=== PATIENT | female | born 1990 | race Caucasian/White ===

== ENCOUNTER 2017-04-06 16:35 | Emergency (ER) | payer OTHER ==
[2017-04-06 19:02] VITALS: BP 135/75
--- NOTE | 2017-04-06 19:37 | UC ---
Eye Complaint HPI - HPI Summary HPI Summary: complaint of right eye redness and itchy that started 2 days ago woke up the first day with swelling in upper eyelid had a lot of purulent drainage using a warm pack without relief used visine with minimal relief for a few minutes extremely itchy and irritated sis eye pain and vision changes headache slight nasal drainage d/t allergies - History of Current Complaint Chief Complaint: UCEye Stated Complaint: RT EYE COMPLAINT Time Seen by Provider: 04/06/17 19:17 Hx Obtained From: Patient Hx Last Menstrual Period: CURRENT - Allergies/Home Medications Allergies/Adverse Reactions: Allergies Allergy/AdvReac Type Severity Reaction Status Date / Time Diazepam [From Valium] Allergy Severe Swelling Verified 04/06/17 19:02 Of Face,Lips,& Throat Lu Allergy Swelling Verified 04/06/17 19:02 Of Face,Lips,& Throat [place] Allergy Swelling Verified 04/06/17 19:02 Of Face,Lips,& Throat Red Dye Allergy Swelling Verified 04/06/17 19:02 Of Face,Lips,& Throat Home Medications: Home Medications Levonorgestrel (Iud) [Mirena IUD] 20 mcg IU ONCE 04/06/17 [History Confirmed 07/15] PMH/Surg Hx/FS Hx/Imm Hx Previously Healthy: Yes - Surgical History Surgical History: Yes Surgery Procedure, Year, and Place: Gallbladder Removed, Tonsilectomy - Family History Known Family History: Positive: Cardiac Disease - mother, Hypertension - mother , Diabetes - mother - Social History Occupation: Employed Full-time Lives: With Family Alcohol Use: Rare Substance Use Type: None Smoking Status (MU): Heavy Every Day Tobacco Smoker Type: Cigarettes Amount Used/How Often: 1/2 ppd Length of Time of Smoking/Using Tobacco: GREATER THAN 10 YRS. Have You Smoked in the Last Year: Yes Cessation Counseling: Patient Advised to Stop Review of Systems Constitutional: Negative Skin: Negative Eyes: Drainage, Eye Redness ENT: Nasal Discharge Respiratory: Negative Cardiovascular: Negative Gastrointestinal: Negative Genitourinary: Negative Motor: Negative Neurovascular: Negative Musculoskeletal: Negative Neurological: Negative Psychological: Negative All Other Systems Reviewed And Are Negative: Yes Physical Exam Triage Information Reviewed: Yes Appearance: No Pain Distress, Well-Nourished Vital Signs: Initial Vital Signs Temp 98.8 F 04/06/17 18:56 Pulse 95 04/06/17 18:56 Resp 16 06/09/17 18:56 BP 135/75 04/06/17 18:56 Pulse Ox 99 04/06/17 18:56 Vital Signs Reviewed: Yes Eyes: Positive: Conjunctiva Inflamed - right, Other: - right upper eyelid with stye ENT: Positive: Pharynx normal, TMs normal Neck: Positive: No Lymphadenopathy Respiratory: Positive: Lungs clear, Normal breath sounds, No respiratory distress, No accessory muscle use Cardiovascular: Positive: RRR, No Murmur, Pulses Normal Abdomen Description: Positive: Nontender, Soft Bowel Sounds: Positive: Present Musculoskeletal: Positive: No Edema Neurological: Positive: Alert Psychological Exam: Normal Skin Exam: Normal Eye Complaint Course/Dx - Differential Dx/Diagnosis Differential Diagnosis/HQI/PQRI: Conjunctivitis, Other - hordelum Provider Diagnoses: right conjunctivitis. chalazion right upper eyelid Discharge - Discharge Plan Condition: Stable Disposition: HOME Prescriptions: Tobramycin 0.3% OPHTH.ROSE* 1 drop RIGHT EYE Q4H #1 btl Patient Education Materials: Conjunctivitis (ED), Stye (ED) Referrals: HASEEB Wilkes [Primary Care Provider] - Additional Instructions: Please start antibiotic eyedrops as directed Increase fluids and rest Take acetaminophen or ibuprofen for fever or pain Please review your discharge instructions. If your symptoms do not improve please call your primary care provider or return to urgent care. Your blood pressure is pre-hypertensive reading. Please contact your primary care provider within 1 day -4 weeks for further evaluation
== END 2017-04-06 19:44 | disposition home or self-care (01) ==
LOC: UCCORT 16:35
DX: H10.9 Unspecified conjunctivitis (principal); H00.11 Chalazion right upper eyelid; F17.210 Nicotine dependence, cigarettes, uncomplicated
CPT/HCPCS: 99212; G0463

== ENCOUNTER 2018-11-21 16:52 | Emergency (ER) | payer OTHER | END 2018-11-21 17:57 | disposition left against medical advice (07) | LOC: UCCORT 16:52 | DX: K12.2 Cellulitis and abscess of mouth (principal); L02.419 Cutaneous abscess of limb, unspecified; Z53.21 Procedure and treatment not carried out due to patient leaving prior to being seen by health care provider ==

== ENCOUNTER 2019-01-21 14:50 | Emergency (ER) | payer OTHER ==
[2019-01-21 15:30] VITALS: BP 126/71
--- NOTE | 2019-01-21 16:34 | UC ---
Lower Extremity/Ankle HPI - HPI Summary HPI Summary: 28 yo female presents with a 2 day hx of bilat LE edema and numbness and tingling of her left wrist up to elbow Had CTS when and her left arm symptoms are identical Dx with HEP C 08/2019 and has not followed up with specialist yet some perioral tingling as well no CP or sob no f/c - History of Current Complaint Chief Complaint: UCGeneralIllness Stated Complaint: LEFT FOOT COMPLAINT Time Seen by Provider: 01/21/19 16:12 Hx Obtained From: Patient Hx Last Menstrual Period: 01/14/19 Onset/Duration: Gradual Onset, Lasting Weeks Severity Currently: None Pain Intensity: 0 Pain Scale Used: 0-10 Numeric Aggravating Factor(s): Nothing Alleviating Factor(s): Elevation, Nothing Able to Bear Weight: Yes - Allergies/Home Medications Allergies/Adverse Reactions: Allergies Allergy/AdvReac Type Severity Reaction Status Date / Time kumari Allergy Swelling Verified 01/21/19 15:22 Of Face,Lips,& Throat diazepam [From Valium] Allergy Swelling Verified 01/21/19 15:22 Of Face,Lips,& Throat pine nut Allergy Swelling Verified 01/21/19 15:22 Of Face,Lips,& Throat red dye Allergy Swelling Verified 01/21/19 15:22 Of Face,Lips,& Throat Home Medications: Home Medications Buprenorp/Nalox 8-2 MG FILM [Suboxone 8 mg-2 mg Sl Film] 1 each SL DAILY [History Confirmed 01/21/19] PMH/Surg Hx/FS Hx/Imm Hx Previously Healthy: Yes Other History Of: Hepatitis C - Surgical History Surgical History: Yes Surgery Procedure, Year, and Place: Gallbladder Removed, Tonsilectomy - Family History Known Family History: Positive: Cardiac Disease - mother, Hypertension - mother , Diabetes - mother - Social History Alcohol Use: None Substance Use Type: Other Substance Use Comment - Amount & Last Used: sunday Smoking Status (MU): Heavy Every Day Tobacco Smoker Type: Cigarettes Amount Used/How Often: 1/2 ppd Length of Time of Smoking/Using Tobacco: GREATER THAN 10 YRS. Have You Smoked in the Last Year: Yes Review of Systems All Other Systems Reviewed And Are Negative: Yes Constitutional: Positive: Negative Skin: Positive: Negative Eyes: Positive: Negative ENT: Positive: Negative Respiratory: Positive: Negative Cardiovascular: Positive: Negative Gastrointestinal: Positive: Negative Genitourinary: Positive: Negative Motor: Positive: Negative Neurovascular: Positive: Negative Musculoskeletal: Positive: Edema Neurological: Positive: Paresthesia, Numbness Psychological: Positive: Negative Physical Exam Triage Information Reviewed: Yes Appearance: Well-Appearing, No Pain Distress, Well-Nourished Vital Signs: Initial Vital Signs Temp 98.6 F 01/21/19 15:23 Pulse 93 01/21/19 15:23 Resp 16 01/21/19 15:23 BP 126/71 01/21/19 15:23 Pulse Ox 100 01/21/19 15:23 Vital Signs Reviewed: Yes Eyes: Positive: Conjunctiva Clear ENT: Positive: Hearing grossly normal, Pharynx normal, Uvula midline. Negative : Nasal congestion, Nasal drainage, Trismus, Muffled voice, Hoarse voice Dental Exam: Other - abysmal dentition Neck: Positive: Supple, Nontender, No Lymphadenopathy Respiratory: Positive: Lungs clear, Normal breath sounds, No respiratory distress, No accessory muscle use. Negative: Crackles Cardiovascular: Positive: RRR, No Murmur Musculoskeletal: Positive: ROM Intact, Edema @ - ++ pre tibial edema, Other: - + phalens L Neurological: Positive: Alert, Muscle Tone Normal Psychological Exam: Normal Skin Exam: Normal Lower Extremity Course/Dx - Differential Dx/Diagnosis Provider Diagnosis: Left carpal tunnel syndrome, Peripheral edema, Hepatitis-C Discharge - Sign-Out/Discharge Documenting (check all that apply): Patient Departure All imaging exams completed and their final reports reviewed: No Studies - Discharge Plan Condition: Stable Disposition: HOME Patient Education Materials: Leg Edema (ED) Referrals: HASEEB Wilkes [Primary Care Provider] - As Soon As Possible Additional Instructions: I am not sure what is causing your edema I think the edema (swelling) is leading to carpal tunnel syndrome wear left cock up brace you need to make arrangements to have your HEP C addressed blood work is pending - Billing Disposition and Condition Condition: STABLE Disposition: Home
[2019-01-22 11:39] LABS: Hematocrit 40 % (33-41); Hemoglobin 12.9 g/dL (12.0-16.0); Mean Corpuscular HGB Conc 32 g/dL (31-36); Mean Corpuscular Hemoglobin 25 pg (27-31); Mean Corpuscular Volume 78 fL (80-97); Red Blood Count 5.11 10^6 /uL (3.70-4.87); Red Cell Distribution Width 16 % (10.5-15); White Blood Count 7.5 10^3/uL (3.5-10.8)
[2019-01-22 11:44] LABS: Albumin 4.2 g/dL (3.2-5.2); Calcium 9.9 mg/dL (8.6-10.3); Potassium 3.7 mmol/L (3.5-5.0); Total Bilirubin 0.4 mg/dL (0.2-1.0)
[2019-01-22 11:50] LABS: Albumin/Globulin Ratio 1.4 (1-3); BUN/Creatinine Ratio 16.1 (8-20); EGFR African American 154.9 (>60); Globulin 3.1 g/dL (2-4); Total Protein 7.3 g/dL (6.4-8.9)
[2019-01-22 12:20] LABS: TSH (Thyroid Stimulating Horm) 1.33 mcIU/mL (0.34-5.60)
[2019-01-22 12:27] LABS: ABS Basophils 0.1 10^3/ul (0-0.2); ABS Eosinophils 0.1 10^3/ul (0-0.6); ABS Lymphocytes 3.1 10^3/ul (1.0-4.8); ABS Monocytes 0.5 10^3/ul (0-0.8); ABS Neutrophils 3.7 10^3/ul (1.5-7.7); ABS Nucleated RBC 0 10^3/ul; Eosinophil % 1.8 %; Lymphocyte % 40.9 %; Nucleated Red Blood Cells % 0.2; Platelet Count Platelets clumped. 10^3/uL (150-450)
--- NOTE | 2019-01-23 07:18 | ED ---
Progress - Progress Note Progress Note: Send lab results to patient doctor for follow up, call patient inform of her developing microcytic indicies that can signify developing anemia. She needs follow up studies as an outpatient by her primary doctor. Course/Dx - Diagnoses Provider Diagnoses: Left carpal tunnel syndrome, Peripheral edema, Hepatitis-C Discharge - Sign-Out/Discharge Documenting (check all that apply): Patient Departure All imaging exams completed and their final reports reviewed: No Studies - Discharge Plan Condition: Stable Disposition: HOME Prescriptions: Clindamycin Cap(NF) [Clindamycin Cap 300 mg Cap(NF)] 300 mg PO QID #28 cap Patient Education Materials: Leg Edema (ED) Referrals: HASEEB Wilkes [Primary Care Provider] - As Soon As Possible Additional Instructions: I am not sure what is causing your edema I think the edema (swelling) is leading to carpal tunnel syndrome wear left cock up brace you need to make arrangements to have your HEP C addressed blood work is pending warm compresses right arm infection recheck in not improved in 2-3 days - Billing Disposition and Condition Condition: STABLE Disposition: Home
== END 2019-01-21 17:38 | disposition home or self-care (01) ==
LOC: UCCORT 14:50
DX: G56.02 Carpal tunnel syndrome, left upper limb (principal); R60.0 Localized edema; B19.20 Unspecified viral hepatitis C without hepatic coma; F17.210 Nicotine dependence, cigarettes, uncomplicated; Z91.018 Allergy to other foods; Z91.09 Other allergy status, other than to drugs and biological substances; Z88.8 Allergy status to other drugs, medicaments and biological substances
CPT/HCPCS: 36415; 80053; 84443; 85025; 99213; G0463

== ENCOUNTER 2019-07-09 11:10 | Emergency (ER) | payer OTHER ==
[2019-07-09 11:47] VITALS: BP 113/61
--- NOTE | 2019-07-09 12:05 | UC ---
Skin Complaint HPI - HPI Summary HPI Summary: 29 yo with untreated hepatitis C, with 4 to 5 day history of eruption of painful raised pustules which she has been attempting to express. Increased area at site of left eyebrow piercing and umbilical piercing, has removed the jewelry from them. Seen at [facility] and treated with clindamycin, but no culture was done and she and her family are concerned about spread of infection. 2 year old son does have a left cheek pustule which is consistent with abscess/possible MRSA. No fever, areas are tender. Has seen no response with 6 to 7 doses of clinda which she has taken to date. - History of Current Complaint Chief Complaint: UCSkin Time Seen by Provider: 07/09/19 12:02 Stated Complaint: SKIN COMPLAINT Hx Obtained From: Patient, Family/Stave Bolt Equalizer - here with her [id number] who provides a significant amount of information. Neena is a reticent historian; asked about delay in treatment of hep C she declined discussion and asked me to get on with her exam Hx Last Menstrual Period: 01/14/19 Onset/Duration: Sudden Onset, Lasting Days - 5 Skin Exposure Onset/Duration: Weeks Ago - took care of a family member with MRSA Timing: Constant Pain Intensity: 4 Location: Discrete - well circumscribed crusting lesions, Face, Other - clusters on arms and several on trunk Character: Raised, Painful Aggravating Factor(s): Touch Alleviating Factor(s): Nothing Associated Signs & Symptoms: Positive: Negative - Allergy/Home Medications Allergies/Adverse Reactions: Allergies Allergy/AdvReac Type Severity Reaction Status Date / Time kumari Allergy Swelling Verified 07/09/19 11:42 Of Face,Lips,& Throat diazepam [From Valium] Allergy Swelling Verified 07/09/19 11:42 Of Face,Lips,& Throat pine nut Allergy Swelling Verified 07/09/19 11:42 Of Face,Lips,& Throat red dye Allergy Swelling Verified 07/09/19 11:42 Of Face,Lips,& Throat Home Medications: Home Medications Topiramate [Topamax] 50 mg PO TID 07/09/19 [History Confirmed 07/09/19] PMH/Surg Hx/FS Hx/Imm Hx Previously Healthy: No Other History Of: Hepatitis C - Surgical History Surgical History: Yes Surgery Procedure, Year, and Place: Cholecystectomy, Tonsillectomy - Family History Known Family History: Positive: Cardiac Disease - mother, Hypertension - mother , Diabetes - mother - Social History Occupation: Unemployed Lives: With Family Alcohol Use: None Substance Use Type: None Substance Use Comment - Amount & Last Used: sunday Smoking Status (MU): Heavy Every Day Tobacco Smoker Type: Cigarettes Amount Used/How Often: 1/2 PPD Length of Time of Smoking/Using Tobacco: Since Age 14 Have You Smoked in the Last Year: Yes Review of Systems All Other Systems Reviewed And Are Negative: Yes Constitutional: Positive: Fatigue Skin: Positive: Other - crusting lesion on face and forearms, trunk Cardiovascular: Positive: Negative Gastrointestinal: Positive: Negative - denies symptoms associated with hepatitis C Is Patient Immunocompromised?: Yes - possibly based on hx Physical Exam Triage Information Reviewed: Yes Appearance: Ill-Appearing - looks chronically unwell, Pain Distress - uncomfortable with palpation of lesion Vital Signs: Initial Vital Signs Temp 98.5 F 07/09/19 11:37 Pulse 96 07/09/19 11:37 Resp 16 07/09/19 11:37 BP 113/61 07/09/19 11:37 Pulse Ox 100 07/09/19 11:37 Vital Signs Reviewed: Yes Eyes: Positive: Conjunctiva Clear ENT: Positive: Pharynx normal Dental Exam: Other - approximately 5 mm lesion inner upper lip Dental: Positive: Gross Decay/Caries @ - many absent teeth and deep caries. Neck: Positive: Supple, Nontender, No Lymphadenopathy Respiratory: Positive: Lungs clear, Normal breath sounds Cardiovascular: Positive: RRR, No Murmur Psychological Exam: Normal Skin Exam: Other - numerous crusted lesions, size varrying 3 mm to 1 cm, largest on left outer eybrow. Scant drainage, crusts are dry. One area 4 mm left occipital hairline draining clear fluid and was drainage was sent for culture. Mild erythema surrounds some of the lesions. No deep abscesses, no pustules seen. Course/Dx - Course Course Of Treatment: discontinue clinda and change to bactrim due to persistence; discussed that clinda is a good choice for MRSA. Will use topical bactroban, use good hygiene at home, have her son follow up for assessment of new skin lesion. - Differential Diagnoses - Skin Complaint Differential Diagnoses: Cellulitis, Other - MRSA, impetigo - Diagnoses Provider Diagnosis: Impetigo Discharge ED - Sign-Out/Discharge Documenting (check all that apply): Patient Departure All imaging exams completed and their final reports reviewed: No Studies - Discharge Plan Condition: Stable Disposition: HOME Prescriptions: Sulfamethox/Trimethoprim DS* [Bactrim DS 800/160 TAB*] 1 tab PO BID #20 tab Patient Education Materials: Impetigo (DC) Referrals: Harini Joseph PA [Primary Care Provider] - Additional Instructions: The skin lesions which you have are consistent with a Staph aureus infection which might or might not be MRSA. DISCONTINUE use of clinda and change to bactrim and topical mupirocin. Ensure that you hand wash regularly, clean home surfaces and bedding. - Billing Disposition and Condition Condition: STABLE Disposition: Home
== END 2019-07-09 12:50 | disposition home or self-care (01) ==
LOC: UCCORT 11:10
DX: L01.00 Impetigo, unspecified (principal); R53.83 Other fatigue; Z91.018 Allergy to other foods; Z88.8 Allergy status to other drugs, medicaments and biological substances; F17.210 Nicotine dependence, cigarettes, uncomplicated
CPT/HCPCS: 87070; 87077; 87205; 99212; G0463

== ENCOUNTER 2019-11-13 12:21 | Emergency (ER) | payer OTHER ==
[2019-11-13 13:42] VITALS: BP 124/80
--- NOTE | 2019-11-13 13:44 | UC ---
Ear Complaint HPI - HPI Summary HPI Summary: 29-year-old female with a right earache and cold symptoms. She's had cold symptoms for over a week the right earache started in the past 24 hours. - History of Current Complaint Chief Complaint: UCRespiratory Stated Complaint: COUGH/L EAR COMP/CHEST CONGESTION Time Seen by Provider: 11/13/19 13:43 Hx Obtained From: Patient Hx Last Menstrual Period: 10/22/19 ?: No Onset/Duration: Gradual Onset Severity Initially: Mild Severity Currently: Mild Pain Intensity: 0 Aggravating Factors: Nothing Alleviating Factors: Nothing Associated Signs/Symptoms: Positive: URI Symptoms - Allergies/Home Medications Allergies/Adverse Reactions: Allergies Allergy/AdvReac Type Severity Reaction Status Date / Time kumari Allergy Swelling Verified 11/13/19 13:36 Of Face,Lips,& Throat diazepam [From Valium] Allergy Swelling Verified 11/13/19 13:36 Of Face,Lips,& Throat pine nut Allergy Swelling Verified 11/13/19 13:36 Of Face,Lips,& Throat red dye Allergy Swelling Verified 11/13/19 13:36 Of Face,Lips,& Throat Home Medications: Home Medications busPIRone TAB* [Buspar TAB*] 1 tab BID 11/13/19 [History Confirmed 11/13/19] PMH/Surg Hx/FS Hx/Imm Hx Previously Healthy: Yes Respiratory History: Asthma Psychological History: Anxiety Other History Of: Hepatitis C - Surgical History Surgical History: Yes Surgery Procedure, Year, and Place: Cholecystectomy, Tonsillectomy - Family History Known Family History: Positive: Cardiac Disease - mother, Hypertension - mother , Diabetes - mother - Social History Alcohol Use: None Substance Use Type: None Substance Use Comment - Amount & Last Used: sunday Smoking Status (MU): Heavy Every Day Tobacco Smoker Type: Cigarettes Amount Used/How Often: 1/2 PPD Length of Time of Smoking/Using Tobacco: Since Age 14 Have You Smoked in the Last Year: Yes Review of Systems All Other Systems Reviewed And Are Negative: Yes ENT: Positive: Ear Ache - Right earache, Nasal Discharge, Sinus Congestion Respiratory: Positive: Cough Is Patient Immunocompromised?: No Physical Exam Triage Information Reviewed: Yes Appearance: Well-Appearing, No Pain Distress, Well-Nourished Vital Signs: Initial Vital Signs Temp 97.9 F 11/13/19 13:37 Pulse 85 11/13/19 13:37 Resp 16 11/13/19 13:37 BP 124/80 11/13/19 13:37 Pulse Ox 99 11/13/19 13:37 Vital Signs Reviewed: Yes Eyes: Positive: Conjunctiva Clear ENT: Positive: Hearing grossly normal, Pharynx normal, Nasal congestion, Nasal drainage - Clear nasal coryza, TM red - Right tympanic membrane with erythema and moderate landmarks, left tympanic membranes pearly arias with good land [place] and light reflex., Uvula midline Neck: Positive: Supple, Nontender, No Lymphadenopathy Respiratory: Positive: Lungs clear, Normal breath sounds, No respiratory distress, No accessory muscle use Cardiovascular: Positive: RRR, No Murmur, Pulses Normal, Brisk Capillary Refill Musculoskeletal Exam: Normal Neurological Exam: Normal Psychological Exam: Normal Skin Exam: Normal Ear Complaint Course/Dx - Course Course Of Treatment: Patient is comfortable here and nontoxic. - Differential Dx/Diagnosis Provider Diagnosis: Right otitis media, URI (upper respiratory infection) Discharge ED - Sign-Out/Discharge Documenting (check all that apply): Patient Departure All imaging exams completed and their final reports reviewed: No Studies - Discharge Plan Condition: Fair Disposition: HOME Prescriptions: Amoxicillin/Clavulanate TAB* [Augmentin TAB 875*] 875 mg PO BID 10 Days #20 tab Patient Education Materials: Ear Infection (ED) Referrals: Harini Joseph PA [Primary Care Provider] - Additional Instructions: Increase fluids, [id number] cold medicine as directed, take the Augmentin with food. Follow-up with your primary care provider if no improvement in 5-7 days. - Billing Disposition and Condition Condition: FAIR Disposition: Home
== END 2019-11-13 13:52 | disposition home or self-care (01) ==
LOC: UCCORT 12:21
DX: H66.91 Otitis media, unspecified, right ear (principal); J06.9 Acute upper respiratory infection, unspecified; J45.909 Unspecified asthma, uncomplicated; F41.9 Anxiety disorder, unspecified; F17.210 Nicotine dependence, cigarettes, uncomplicated; Z79.899 Other long term (current) drug therapy; Z91.09 Other allergy status, other than to drugs and biological substances; Z91.018 Allergy to other foods; Z88.8 Allergy status to other drugs, medicaments and biological substances
CPT/HCPCS: 99212; G0463